=== PATIENT | female | born 1985 | race Caucasian/White ===

== ENCOUNTER → 2017-05-10 | Outpatient (CLI) | payer OTHER ==
--- NOTE | 2017-05-10 08:42 | US ---
EXAMINATION TYPE: US gallbladder DATE OF EXAM: 05/10/2017 COMPARISON: NONE CLINICAL HISTORY: R10.11 Right upper quadrant pain. Digestion issues for 6 months, abd ruq pain EXAM MEASUREMENTS: Liver Length: 13.4 cm Gallbladder Wall: 0.2 cm CBD: 0.4 cm Right Kidney: 11.3 x 4.9 x 3.9 cm Pancreas: wnl Liver: wnl Gallbladder: Singular fold seen at neck, wnl Evidence for sonographic Parekh's sign: no CBD: wnl Right Kidney: wnl IMPRESSION: No sonographic evidence of cholelithiasis or cholecystitis. If there is clinical concern for chronic cholecystitis or biliary dyskinesia HIDA scan with CCK could be performed.
== END | disposition home or self-care (01) ==
LOC: RADUSWWP 08:02
PROVIDERS: ATTEND Surgery
DX: R10.11 Right upper quadrant pain (principal)
CPT/HCPCS: 76705

== ENCOUNTER 2017-05-14 10:26 | Day surgery (SDC) | payer BC, OTHER ==
[2017-05-13 09:26] VITALS: BMI 21.1
[~2017-05-14 10:26] MED LIST: DEXAMETHASONE SOD PHOSPHATE 10 MG/ML 1 ML VIAL IV ONE; LACTATED RINGERS 1,000 ML IV SCH; MIDAZOLAM 2 MG/2 ML VIAL IV PRN; ONDANSETRON 4 MG/2 ML VIAL IVP ONE; Pre Op ABX Message 1 EACH MISC MISCELLANE ONE
[2017-05-14] MEDS ORDERED: SCOPOLAMINE 1.5MG/72HR PATCH TRANSDERM ONE (12:31)
[2017-05-14] MEDS ORDERED: HEPARIN SODIUM,PORCINE 5,000 UNIT/ML 1 ML VIAL SQ ONE (13:43)
[2017-05-14] MEDS ORDERED: BUPIVACAINE-EPI 0.5%-1:200,000 10 ML VIAL SQ ONE (13:57)
[2017-05-14] MEDS ORDERED: GLYCOPYRROLATE 0.2 MG/ML 2 ML VIAL ONE (14:05)
[2017-05-14] MEDS ORDERED: NEOSTIGMINE 1 MG/ML 10 ML VIAL ONE (14:05)
[2017-05-14] MEDS ORDERED: MIDAZOLAM 2 MG/2 ML VIAL ONE (14:05)
[2017-05-14] MEDS ORDERED: fentaNYL (PF) 50 MCG/ML 2 ML AMP ONE (14:05)
[2017-05-14] MEDS ORDERED: ROCURONIUM BROMIDE 10 MG/ML 10 ML VIAL IV ONE (14:05)
[2017-05-14] MEDS ORDERED: SUCCINYLCHOLINE CHLORIDE 100 MG/5 ML SYR IV ONE (14:05)
[2017-05-14] MEDS ORDERED: PROPOFOL 10 MG/ML 20 ML VIAL IV ONE (14:05)
[2017-05-14] MEDS: ceFAZolin 2 GM in SODIUM CHLORIDE 0.9% 100 ML IVPB ONE ×2 (14:15→14:22)
[2017-05-14] MEDS ORDERED: LACTATED RINGERS 1,000 ML IV ONE (15:23)
--- NOTE | 2017-05-14 15:24 | P.OP ---
Date of Procedure: 05/14/17 Preoperative Diagnosis: Biliary dyskinesia Postoperative Diagnosis: Biliary dyskinesia Procedure(s) Performed: Robot assisted laparoscopic cholecystectomy Anesthesia: SHERIN Surgeon: Thuy Jennings Pathology: other Condition: stable Description of Procedure: Patient is a 31-year-old female who presented with right upper quadrant pain and a clinical diagnosis of chronic cholecystitis was made. After appropriate informed consent and answering all the patient's questions patient taken the operating placement position and given general anesthesia with endotracheal intubation. After entry into the badominal cavity in the palmers point with a veress needle, abdomen was insufflated to 15 mm hg. . Three 8 mm ports were then placed for the robot in the left upper quadrant and right upper quadrant. A 12 mm port was placed to the left side of the umbilicus Once ports were then placed the patient was placed in appropriate position of left side down and reverse Trendelenburg. The robot was docked and Prograsp was taken in arm 3, [place] was taken and later replaced with bipolar fenestrated forceps in arm 2. Camera was through the 12 mm umbilical port site. And a hook cautery was taken in the arm 1. Gallbladder was retracted cephalad and superiorly. Inflammatory adhesions were taken down with the help of electrocautery. Appropriate critical view was obtained in cystic duct and artery were isolated. 2 clips proximally and 1 distally were plced in the artery and cystic duct and then and transected sharply with the help of scissors. The gallbladder was then taken off the gallbladder fossa with the help of electrocautery. There was inadvertent hole in the gallbladder which resulted in leakage of bile. All that was sucked dry. The abdomen was thoroughly irrigated and sucked dry. Gallbladder was then placed in Endo Catch bag and removed through 12 port site after undocking the robot. Abdomen was then again visualized and completely irrigated and sucked dry. 12 mm port site was closed with the help of a Vargas Meyers under direct laparoscopic view using 0 Vicryl. At this point the procedure was terminated and all ports were removed. Local anesthesia infiltrated into the incisions skin was closed with 4-0 Monocryl and Dermabond was applied. Patient is tolerated the porcedure well with no complications. She was extubated and taken to recovery room in stable condition.
[2017-05-14] MEDS: HYDROmorphone 0.5 MG/0.5 ML SYRINGE IVP PRN ×3 (15:41→16:20)
[2017-05-14 15:46] VITALS: TEMP 97.8
[2017-05-14] MEDS ORDERED: ONDANSETRON 4 MG/2 ML VIAL IVP ONE (16:02)
[2017-05-14] MEDS ORDERED: KETOROLAC 30 MG/ML 1 ML VIAL IVP ONE (16:37)
[2017-05-14] MEDS ORDERED: PROMETHAZINE INJ 25 MG/ML 1 ML VIAL IVPB ONE (17:19)
[2017-05-14 18:30] VITALS: BP 122/66; PULSE 50; RESP 18
== END 2017-05-14 19:08 | disposition home or self-care (01) ==
LOC: OR 10:26
PROVIDERS: ATTEND Surgery
DX: K80.10 Calculus of gallbladder with chronic cholecystitis without obstruction (principal); K82.8 Other specified diseases of gallbladder; K21.9 Gastro-esophageal reflux disease without esophagitis; F34.1 Dysthymic disorder; G43.009 Migraine without aura, not intractable, without status migrainosus; Z79.899 Other long term (current) drug therapy; F17.200 Nicotine dependence, unspecified, uncomplicated
CPT/HCPCS: 81025; 88304; 47562; J2250; J1644; J1100; J2550; J2710; J0690; J2405; J3010; J1885; J0330; J2704; J1170

== ENCOUNTER → 2017-05-20 | Outpatient (CLI) | payer OTHER ==
[2017-05-20 10:59] LABS: CH 29.6; CHCM 32.8; HCT 39.2 % (34.0-46.0); HDW 2.28; HGB 12.8 gm/dL (11.4-16.0); MCH 29.5 pg (25.0-35.0); MCHC 32.5 g/dL (31.0-37.0); MCV 90.8 fL (80.0-100.0); Mean Platelet Volume 8.1; RBC 4.32 m/uL (3.80-5.40); RDW 12.2 % (11.5-15.5); WBC 7.4 k/uL (3.8-10.6)
[2017-05-20 11:29] LABS: ALT 51 U/L (9-52); AST 27 U/L (14-36); Alkaline Phosphatase 51 U/L (38-126); Anion Gap 8 mmol/L; Blood Urea Nitrogen 11 mg/dL (7-17); Calcium 9.3 mg/dL (8.4-10.2); Carbon Dioxide 25 mmol/L (22-30); Chloride 107 mmol/L (98-107); Glucose 92 mg/dL (74-99); Non-African American GFR(MDRD) >60 (>60 ml/min/1.73 sqM); Potassium 4.4 mmol/L (3.5-5.1); Sodium 140 mmol/L (137-145); Total Bilirubin 0.3 mg/dL (0.2-1.3); Total Protein 6.7 g/dL (6.3-8.2)
== END | disposition home or self-care (01) ==
LOC: LABWHC1 10:30
PROVIDERS: ATTEND Surgery
DX: K82.8 Other specified diseases of gallbladder (principal)
CPT/HCPCS: 36415; 80053; 85027

== ENCOUNTER 2017-05-21 12:54 | Observation (INO) | payer OTHER ==
--- NOTE | 2017-05-21 14:05 | CT ---
EXAMINATION TYPE: CT abdomen w con DATE OF EXAM: 05/21/2017 COMPARISON: NONE HISTORY: Abdominal pain. Status post cholecystectomy approximately one week ago. CT DLP: 271.40 mGycm CONTRAST: CT scan of the abdomen and pelvis is performed without Oral Contrast and with IV Contrast, patient in jected with 100 ml mL of Omnipaque 300. FINDINGS: LUNG BASES-: No visible nodule. No infiltrate. LIVER/GB: There is been a cholecystectomy. Small amount of fluid is seen within the gallbladder fossa which is likely postoperative in nature. A small leak would be difficult to exclude. Correlate clini milli. Fluid collection measures 7 mm in greatest width. There is free air identified throughout the abdomen and subcutaneous tissues which is consistent with recent postoperative state. No space occupy ing hepatic lesion. Biliary tree is of normal caliber. PANCREAS: No inflammation. No distinct mass. SPLEEN: 1.3 cm splenic lesion superior pole of the spleen with mild mural calcification. There is als o adjacent splenic defect which may be related to prior trauma. Lesion could reflect cyst or hemangio ma. ADRENALS: No nodule. No thickening. KIDNEYS/BLADDER: No hydronephrosis. No nephrolithiasis. 1.8 cm left renal cyst. Urinary bladder gr ossly unremarkable. BOWEL: Normal bowel caliber. No inflammation. LYMPH NODES: No greater than 1cm abdominal or pelvic lymph nodes are appreciated. AORTA: No significant abnormality. OSSEOUS STRUCTURES: No significant abnormality is seen. OTHER: No significant additional abnormality is seen. IMPRESSION: 1. Moderate free air considering the patient's surgery was approximately 1 week ago. I do not see ind irect evidence for perforated viscus. Correlate clinically. 2. Small amount of fluid within the gallbladder fossa is likely related to postoperative change. Smal l bile leak would be difficult to exclude. If there is concern for bile leak consider HIDA scan.
[2017-05-21] MEDS ORDERED: LACTATED RINGERS 1,000 ML IV ONE (14:32)
[2017-05-21] MEDS ORDERED: NALOXONE 0.4 MG/ML 1 ML VIAL IV PRN (14:32)
--- NOTE | 2017-05-21 15:45 | P.GSHP ---
History of Present Illness H&P Date: 05/21/17 Chief Complaint: Abdominal pain Patient is a very pleasant 31-year-old lady who underwent a laparoscopic cholecystectomy last week.. The patient followed up with me in clinic on Saturday and was at that time and doing very well with increased appetite decreased nausea and normal bowel movements. However when she woke up this morning she started having severe abdominal pain especially in the left upper quadrant and worsening nausea. His no fever or chills no problems with bowel movements no urinary complaints. No jaundice or icterus no fever chills or shakes. Planing of bilateral shoulder pain as well which has been improving but is still moderately painful - Constitutional Constitutional: Reports anorexia - EENT Ears, nose, mouth and throat: Denies headache, Denies sore throat - Cardiovascular Cardiovascular: Denies chest pain, Denies shortness of breath - Respiratory Respiratory: Denies cough, Denies 7 - Gastrointestinal Gastrointestinal: Reports as per HPI - Genitourinary (Female) Genitourinary: Denies dysuria, Denies hematuria - Integumentary Integumentary: Denies pruritus, Denies rash - Endocrine Endocrine: Denies fatigue, Denies weight change - Hematologic/Lymphatic Hematologic/Lymphatic: Denies as per HPI, Denies easy bleeding, Denies easy bruising, Denies lymphadenopathy, Denies lymphedema, Denies thrombophilia - Allergic/Immunologic Allergic/Immunologic: Denies as per HPI, Denies allergic rhinitis, Denies anaphylaxis, Denies angioedema, Denies gluten intolerance, Denies persistent infections, Denies seasonal allergies, Denies urticaria, Denies wheezing Past Medical History Past Medical History: No Reported History Additional Past Medical History / Comment(s): Obstetric history: HEr first was a vaginal delivery in 2010. This is her second . She has had care since 9 weeks gestation. She is A+, abs neg, Rub Imm, RPR NR, Hep B neg, HIV NR. normal 1hr GTT and GBS neg. History of Any Multi-Drug Resistant Organisms: None Reported Past Surgical History: No Surgical Hx Reported Past Anesthesia/Blood Transfusion Reactions: No Reported Reaction Smoking Status: Former smoker - Past Family History Father Family Medical History: Cancer Medications and Allergies Home Medications Medication Instructions Recorded Confirmed Type HYDROcodone/APAP 5-325MG [[place] 1 tab PO Q4HR PRN #12 tab 05/14/17 05/21/17 Rx 5-325] Ibuprofen [Motrin] 800 mg PO Q8H PRN #20 tab 05/14/17 05/21/17 Rx Ergocalciferol (Vitamin D2) 50,000 unit PO Q7D 05/21/17 05/21/17 History [Vitamin D2] Allergies Allergy/AdvReac Type Severity Reaction Status Date / Time No Known Allergies Allergy Verified 05/21/17 15:19 Surgical - Exam Vital Signs Temp Pulse Resp BP Pulse Ox 98.2 F 66 18 119/71 96 05/21/17 15:00 05/21/17 15:00 05/21/17 15:00 05/21/17 15:00 05/21/17 15:00 - General well nourished, moderate distress - Eyes PERRL, normal ocular movement, no pale - ENT normal pinna, normal nares, normal mucosa, no hearing loss - Neck no masses, no bruits, trachea midline - Respiratory normal expansion, normal respiratory effort - Cardiovascular Rhythm: regular - Abdomen Abdomen is soft with no peritoneal sign left upper quadrant was tender is no guarding or rebound. Abdomen: soft, tender, surgical scars - Integumentary no rash, no growths - Neurologic normal coordination, normal sensation, disoriented - Musculoskeletal normal gait, normal posture - Psychiatric oriented to time, oriented to person, oriented to place, speech is normal, memory intact Results - Imaging Additional studies: Computed tomography scan of the abdomen and pelvis was reviewed there is no overt signs of leak or injury. The patient has normal last Saturday. Assessment and Plan (1) Abdominal pain Current Visit: Yes Status: Acute Code(s): R10.9 - UNSPECIFIED ABDOMINAL PAIN SNOMED Code(s): 92625002 Plan: Patient had left scopic was technique the lower week ago. She had been doing fine until this Saturday when she suddenly started having pain this morning. Labs on Saturday were completely normal computed tomography scan of the abdomen pelvis was seen and reviewed with the radiologist and reveals appropriate amount of postoperative fluid in the gallbladder fossa. There was also bubbles of air throughout the abdomen consistent with his surger comes in complaining of shoulder pain bilaterally. She is having some nausea. I will give her pain medication and antinausea medication. We'll do labs today and repeat them in the morning. I will reevaluate her in the morning. If her pain continues and her labs or something unusual especially in view of peritoneal signs we will explore that and do a diagnostic laparoscopy. After detailed discussion with the patient who understand
[2017-05-21 16:16] LABS: Basophils # (A) 0.1 k/uL (0-0.2); Basophils % (A) 1 %; CH 30.2; CHCM 33.2; Eosinophils # (A) 0.2 k/uL (0-0.7); Eosinophils % (A) 2 %; HCT 40.5 % (34.0-46.0); HDW 2.31; HGB 13.1 gm/dL (11.4-16.0); Luc # (Auto) 0.09; Luc % (Auto) 1; Lymphocytes # (A) 2.3 k/uL (1.0-4.8); Lymphocytes % (A) 29 %; MCH 29.6 pg (25.0-35.0); MCHC 32.4 g/dL (31.0-37.0); MCV 91.4 fL (80.0-100.0); Mean Platelet Volume 7.7; Monocytes # (A) 0.4 k/uL (0-1.0); Monocytes % (A) 5 %; Neutrophils # (A) 4.8 k/uL (1.3-7.7); Neutrophils % (A) 62 %; RBC 4.43 m/uL (3.80-5.40); RDW 12.2 % (11.5-15.5); WBC 7.7 k/uL (3.8-10.6); WBC (Perox) 7.69
[2017-05-21 16:20] LABS: ALT 49 U/L (9-52); AST 26 U/L (14-36); Alkaline Phosphatase 50 U/L (38-126); Amylase 44 U/L (30-110); Anion Gap 8 mmol/L; Blood Urea Nitrogen 9 mg/dL (7-17); Calcium 9.5 mg/dL (8.4-10.2); Carbon Dioxide 26 mmol/L (22-30); Chloride 104 mmol/L (98-107); Glucose 81 mg/dL (74-99); Non-African American GFR(MDRD) >60 (>60 ml/min/1.73 sqM); Potassium 4.1 mmol/L (3.5-5.1); Sodium 138 mmol/L (137-145); Total Bilirubin 0.3 mg/dL (0.2-1.3); Total Protein 6.9 g/dL (6.3-8.2)
[2017-05-21] MEDS: ONDANSETRON 4 MG/2 ML VIAL IVP PRN (17:50)
[2017-05-21] MEDS: HYDROmorphone 0.5 MG/0.5 ML SYRINGE IVP PRN (18:01)
[2017-05-21] MEDS: FAMOTIDINE 20 MG TAB PO SCH (20:12)
[2017-05-21] MEDS ORDERED: ACETAMINOPHEN TAB 325 MG TAB PO PRN (20:24)
[2017-05-22] MEDS: ONDANSETRON 4 MG/2 ML VIAL IVP PRN ×2 (01:41→10:27)
[2017-05-22] MEDS: HYDROmorphone 0.5 MG/0.5 ML SYRINGE IVP PRN ×2 (04:01→10:27)
[2017-05-22 07:00] LABS: Basophils # (A) 0.1 k/uL (0-0.2); Basophils % (A) 1 %; CH 29.2; CHCM 32.7; Eosinophils # (A) 0.3 k/uL (0-0.7); Eosinophils % (A) 5 %; HCT 38.6 % (34.0-46.0); HDW 2.17; HGB 12.6 gm/dL (11.4-16.0); Luc # (Auto) 0.14; Luc % (Auto) 2; Lymphocytes # (A) 2.2 k/uL (1.0-4.8); Lymphocytes % (A) 34 %; MCH 29.2 pg (25.0-35.0); MCHC 32.6 g/dL (31.0-37.0); MCV 89.8 fL (80.0-100.0); Monocytes # (A) 0.4 k/uL (0-1.0); Monocytes % (A) 5 %; Neutrophils # (A) 3.4 k/uL (1.3-7.7); Neutrophils % (A) 53 %; WBC 6.5 k/uL (3.8-10.6); WBC (Perox) 6.63
[2017-05-22 07:23] LABS: ALT 50 U/L (9-52); AST 29 U/L (14-36); Alkaline Phosphatase 48 U/L (38-126); Amylase 37 U/L (30-110); Anion Gap 11 mmol/L; Blood Urea Nitrogen 10 mg/dL (7-17); Calcium 9.4 mg/dL (8.4-10.2); Carbon Dioxide 24 mmol/L (22-30); Chloride 105 mmol/L (98-107); Glucose 83 mg/dL (74-99); Non-African American GFR(MDRD) >60 (>60 ml/min/1.73 sqM); Potassium 4.2 mmol/L (3.5-5.1); Sodium 140 mmol/L (137-145); Total Bilirubin 0.7 mg/dL (0.2-1.3); Total Protein 6.4 g/dL (6.3-8.2)
[2017-05-22] MEDS: FAMOTIDINE 20 MG TAB PO SCH (08:05)
[2017-05-22 08:18] VITALS: PULSE 51; RESP 18; TEMP 98.3
[2017-05-22 10:27] VITALS: BP 120/63
[2017-05-22] MEDS ORDERED: SCOPOLAMINE 1.5MG/72HR PATCH TRANSDERM SCH (10:30)
--- NOTE | 2017-05-22 11:18 | P.CONS ---
History of Present Illness - Reason for Consult Consult date: 05/22/17 Nausea Requesting physician: Thuy Jennings - Chief Complaint nausea - History of Present Illness 31-year-old female status post laparoscopic acalculus cholecystectomy 2016 for persistent midepigastric burning discomfort, nonbloody diarrhea 1 year duration. Presents yesterday with left upper quadrant discomfort generalized achiness and nausea. Denies fever chills hematemesis hematochezia melena. Few episodes of diarrhea over the last few days. CT abdomen small fluid seen within the gallbladder fossa most likely postoperative in nature. Small biliary leak difficult to exclude. Fluid collection 7 mm. Biliary tree of normal caliber. White count 6.5. Hemoglobin 12.6. Platelet 294. LFTs bilirubin within normal limits. Lipase 198. Amylase 37. Review of Systems Constitutional: Denies fever, chills, sweats, weight gain, or loss. HEENT: Negative for migraines, blurred vision or loss, earaches, drainage, tinnitus, oral mucosal lesions, dysphagia, or odynophagia. CARDIAC: Negative for chest pain, arrhythmias, or palpitation. RESPIRATORY: Negative for shortness of breath, hemoptysis, cough, or sputum production. GI: See HPI for pertinent findings. : Negative for hematuria, urgency, frequency, polyuria, or dysuria. GYNc: Denies possibility of . Negative vaginal discharge. MUSCULOSKELETAL: Negative for muscle aches, swelling, arthritis, and arthralgias. NEUROLOGIC: Negative for stroke or TIA. ENDOCRINE: Negative for thyroid problems. SKIN: Negative for rash or itching. PSYCHIATRIC: Negative history for depression and anxiety Past Medical History Past Medical History: No Reported History Additional Past Medical History / Comment(s): Obstetric history: HEr first was a vaginal delivery in 2010. This is her second . She has had care since 9 weeks gestation. She is A+, abs neg, Rub Imm, RPR NR, Hep B neg, HIV NR. normal 1hr GTT and GBS neg. History of Any Multi-Drug Resistant Organisms: None Reported Past Surgical History: No Surgical Hx Reported Past Anesthesia/Blood Transfusion Reactions: No Reported Reaction Additional Past Anesthesia/Blood Transfusion Reaction / Comm: DIFFICULTY WAKING UP AFTER AA. Smoking Status: Current every day smoker - Past Family History Mother Family Medical History: Hypertension Additional Family Medical History / Comment(s): "CURRENTLY BEING TESTED FOR BREAST CANCER" Father Family Medical History: Cancer Additional Family Medical History / Comment(s): THROAT CANCER D/T HPV Medications and Allergies Home Medications Medication Instructions Recorded Confirmed Type HYDROcodone/APAP 5-325MG [[place] 1 tab PO Q4HR PRN #12 tab 05/14/17 05/21/17 Rx 5-325] Ibuprofen [Motrin] 800 mg PO Q8H PRN #20 tab 05/14/17 05/21/17 Rx Ergocalciferol (Vitamin D2) 50,000 unit PO Q7D 05/21/17 05/21/17 History [Vitamin D2] Allergies Allergy/AdvReac Type Severity Reaction Status Date / Time No Known Allergies Allergy Verified 05/21/17 15:19 Physical Exam Vitals: Vital Signs Temp Pulse Resp BP Pulse Ox 05/22/17 10:26 120/63 05/22/17 08:00 98.3 F 51 L 18 91/47 100 05/22/17 04:00 16 05/22/17 00:00 98.1 F 53 L 16 104/61 99 05/21/17 20:00 18 05/21/17 15:00 98.2 F 66 18 119/71 96 Intake and Output 05/21/17 05/22/17 05/22/17 22:59 06:59 14:59 Intake Total 460 Balance 460 Intake: Oral 460 Other: Voiding Method Toilet Toilet Toilet # Voids 1 Weight 55.7 kg General appearance: The patient is alert, oriented, in no acute distress. HET: Head is normocephalic and atraumatic. Pupils are equal and reactive. Oropharynx is clear without lesions. Neck: Supple without lymphadenopathy. Trachea midline. Heart: S1 S2. Regular rate and rhythm. Lungs: No crackles or wheezes are heard. Abdomen: Soft, very mild upper abdominal tenderness bilaterally laparoscopic incisions healing, nondistended with bowel sounds. No peritoneal signs. No palpable organomegaly or masses. Extremities: Normal skin color and turgor. No cyanosis, rash, ulceration, clubbing, or edema. Radial and pedal pulses are 2/4 bilaterally. Neurological: No focal deficits. Strength and sensation are grossly intact. Results CBC & Chem 7: 05/22/17 06:25 05/22/17 06:25 CT scan - abdomen: report reviewed (Dr. Jennings) Assessment and Plan (1) Abdominal pain Narrative/Plan: Etiology unclear Current Visit: Yes Status: Acute Code(s): R10.9 - UNSPECIFIED ABDOMINAL PAIN SNOMED Code(s): 26829091 (2) Nausea Current Visit: Yes Status: Acute Code(s): R11.0 - NAUSEA SNOMED Code(s): 165293098 (3) S/P laparoscopic cholecystectomy Current Visit: Yes Status: Acute Code(s): Z90.49 - ACQUIRED ABSENCE OF OTHER SPECIFIED PARTS OF DIGESTIVE TRACT SNOMED Code(s): 804408090 Plan: 1. Anti-emetics. GI prophylaxis. If there is concern for small biliary leak recommend HIDA scan. We'll defer to general surgery for further evaluation and possible endoscopy. If diarrhea persists recommend stool studies. Thank you for this kind referral and the opportunity to participate in the care of your patient. This consultation was discussed with Dr. Gupta. The impression and plan of care have been directed as dictated.
[2017-05-22 11:37] VITALS: BMI 21.0
[2017-05-22 12:15] LABS: Appearance,Urine Clear (Clear); Bilirubin,Urine Negative (Negative); Glucose,Urine (UA) Negative (Negative); Ketones,Urine 4+ (Negative); Leukocyte Esterase,Urine Negative (Negative); Nitrite,Urine Negative (Negative); Protein,Urine Negative (Negative); Specific Gravity,Urine 1.013 (1.001-1.035); UA Billing (MACRO vs. MICRO) CHEM; Urobilinogen,Urine <2.0 mg/dL (<2.0)
--- NOTE | 2017-05-22 13:13 | P.DS ---
Providers Date of admission: 05/21/17 14:49 Expected date of discharge: 05/22/17 Attending physician: Thuy Cullen Consults: 05/21/17 15:53 Consult Physician Routine Consulting Provider: Bhupinder Mcarthur Consult Reason/Comments: intractable nausea Do you want consulting provider notified?: Yes, Notify in am Primary care physician: Stated None Hospital Course: 31-year-old female who presented to Dr. cullen clinic on Saturday this week at that time patient was doing well had increased her appetite had decreased nausea and vomiting normal bowel movements. Apparently the patient woke up this morning on the was having severe abdominal pain especially in the left upper quadrant with nausea. No fever chills. No difficulty in having a bowel movement. Denied any burning in urination or frequency urgency. Was not jaundiced. Was advised to come into the emergency room to be evaluated for the above-mentioned symptoms Patient recently underwent a laparoscopic cholecystectomy one week prior. Patient had a CAT scan of the abdomen showed a small amount of fluid within the gallbladder fossa most likely postoperative changes. Biliary tree of normal caliber. White count 6.5 hemoglobin 12.6 function studies and the bilirubin were within normal limits. Lipase 198 and amylase 37. Patient was afebrile tolerating a diet urinalysis was negative for evidence of a UTI. Gastroenterology consultation obtained they recommended conservative treatment and patient follow-up surgical service On the day of discharge patient was up ambulating no further episodes of left upper quadrant or lower quadrant pain abdomen soft nontender reports no nausea vomiting was felt to be appropriate to be discharged Impression discharge diagnosis Present on admission left upper quadrant abdominal pain resolved unclear etiology Status post laparoscopic cholecystectomy The above impression and plan of care have been discussed and directed by signing physician. Jaci Underwood nurse practitioner acting as scribe for signing physician. Plan - Discharge Summary Discharge Rx Participant: No New Discharge Prescriptions: Continue HYDROcodone/APAP 5-325MG [[place] 5-325] 1 tab PO Q4HR PRN #12 tab PRN Reason: Pain Ibuprofen [Motrin] 800 mg PO Q8H PRN #20 tab PRN Reason: Pain Ergocalciferol (Vitamin D2) [Vitamin D2] 50,000 unit PO Q7D Discharge Medication List HYDROcodone/APAP 5-325MG [[place] 5-325] 1 tab PO Q4HR PRN #12 tab 05/14/17 [Rx] Ibuprofen [Motrin] 800 mg PO Q8H PRN #20 tab 05/14/17 [Rx] Ergocalciferol (Vitamin D2) [Vitamin D2] 50,000 unit PO Q7D 05/21/17 [History] Follow up Appointment(s)/Referral(s): Thuy Cullen MD [STAFF PHYSICIAN] - 05/27/17 Activity/Diet/Wound Care/Special Instructions: Encourage oral intake increase drinking water Increase activity Discharge Disposition: HOME SELF-CARE
== END 2017-05-22 13:38 | disposition home or self-care (01) ==
LOC: RADCTMAIN 12:54 → 3OBS 14:49
PROVIDERS: ADMIT Surgery; ATTEND Surgery
DX: R10.12 Left upper quadrant pain (principal); R19.7 Diarrhea, unspecified; R11.0 Nausea; M25.511 Pain in right shoulder; M25.512 Pain in left shoulder; Z90.49 Acquired absence of other specified parts of digestive tract; Z87.891 Personal history of nicotine dependence; Z82.49 Family history of ischemic heart disease and other diseases of the circulatory system; Z80.8 Family history of malignant neoplasm of other organs or systems
CPT/HCPCS: 96374; 96375; 96376; 80053 ×2; 82150 ×2; 83690 ×2; 85025 ×2; 81003; 87086; 74160; G0378 ×2; J2405 ×2; Q9967; J1170 ×2

== ENCOUNTER → 2023-10-29 | Outpatient (CLI) | payer OTHER ==
--- NOTE | 2023-10-29 11:47 | CT ---
EXAMINATION TYPE: CT soft tissue neck w con DATE OF EXAM: 10/29/2023 COMPARISON: None HISTORY: rt sided neck cheek swelling x1-[address] DLP: 818.70 mGycm CONTRAST: Patient injected with 100ml mL of Isovue 300. TECHNIQUE: Axial images at 3 mm thick sections. Reconstructed images in the coronal plane and sagitt al plane are reviewed. FINDINGS: Limited CT sections are obtained the lung apices. The lung apices appear clear. CT neck: The torus tubarius and fossa of Rosenmuller are normal. Machining Supervisor spaces are normal. Para nasal sinuses and mastoid air cells are clear. Parotid glands appear normal and symmetrical. Submandibular glands somewhat prominent but symmetrica l. No obvious sialolithiasis lithiasis identified. No dilated ducts evident. Parapharyngeal spaces are normal. No suspicious adenopathy is evident. The hypopharynx appears within normal limits. Vocal cord level appear symmetrical. Thyroid as visualized is normal. Osseous structures are normal. IMPRESSION: 1. No suspicious salivary gland abnormality.
== END | disposition home or self-care (01) ==
LOC: RADCTMAIN 10:31
PROVIDERS: ATTEND Family Medicine
DX: K11.20 Sialoadenitis, unspecified (principal)
CPT/HCPCS: 70491; Q9967

== ENCOUNTER → 2023-10-30 | Outpatient (CLI) | payer OTHER ==
--- NOTE | 2023-10-31 14:12 | MM ---
Reason for Exam: Screening (asymptomatic). Baseline mammogram. Patient History: Menarche at age 11. First Full-Term at age 25. Maternal grandmother had breast cancer under age 50. Last menstrual period: 10/05/2023 Risk Values: Janis 5 year model risk: 0.3%. NCI Lifetime model risk: 10.0%. Prior Study Comparison: Patient's first Mammogram. Tissue Density: The breasts are heterogeneously dense, which may obscure small masses. Findings: Analyzed By CAD. Right breast: Asymmetry best appreciated on MLO view measuring 8 mm and 8.5 cm from the nipple. Not well appreciated on lateral view. Left breast: Focal mass left breast lateral aspect on CC view and posterior nipple line on MLO view approximately 6.5 cm from nipple measuring up to 12 mm. Overall Assessment: Incomplete: need additional imaging evaluation, BI-RAD 0 Management: Diagnostic Mammogram of both breasts. [facility] will attempt to contact patient to return for supplemental views and ultrasound if indicated. Patient should continue monthly self-breast exams. A clinical breast exam by your physician is recommended on an annual basis. This exam should not preclude additional follow-up of suspicious palpable abnormalities. Note on Janis scores and lifetime risk: 1. A Janis score greater than 3% is considered moderate risk. If this is the case, consider specialist referral to assess eligibility for a risk reducing agent. 2. If overall lifetime risk for the development of breast cancer is 20% or higher, the patient may qualify for future screening with alternating mammogram and breast MRI. Electronically signed and approved by: Tereso Yarbrough DO
== END | disposition home or self-care (01) ==
LOC: RADMAMWWP 09:41
PROVIDERS: ATTEND Family Medicine
DX: Z12.31 Encounter for screening mammogram for malignant neoplasm of breast (principal); Z80.3 Family history of malignant neoplasm of breast
CPT/HCPCS: 77067

== ENCOUNTER → 2023-11-05 | Outpatient (CLI) | payer OTHER ==
--- NOTE | 2023-11-05 12:19 | MM ---
Reason for Exam: Additional evaluation requested from abnormal screening. Last screening mammogram was performed less than 1 month ago. Patient History: Menarche at age 11. First Full-Term at age 25. Maternal grandmother had breast cancer under age 50. Risk Values: Janis 5 year model risk: 0.3%. NCI Lifetime model risk: 10.0%. Prior Study Comparison: 10/30/2023 Bilateral MG screening mammo w CAD, [facility]. Tissue Density: There are scattered areas of fibroglandular density. Findings: Analyzed By CAD. Bilateral mass densities noted likely reflective of cysts. Ultrasound is recommended. Overall Assessment: Incomplete: need additional imaging evaluation, BI-RAD 0 Management: Diagnostic Breast Ultrasound of both breasts. . Results were given to the patient verbally at the time of exam. Patient should continue monthly self-breast exams. A clinical breast exam by your physician is recommended on an annual basis. This exam should not preclude additional follow-up of suspicious palpable abnormalities. Note on Janis scores and lifetime risk: 1. A Janis score greater than 3% is considered moderate risk. If this is the case, consider specialist referral to assess eligibility for a risk reducing agent. 2. If overall lifetime risk for the development of breast cancer is 20% or higher, the patient may qualify for future screening with alternating mammogram and breast MRI. Electronically signed and approved by: Mike Hernández M.D. Radiologis
--- NOTE | 2023-11-05 13:49 | USB ---
Reason for Exam: Additional evaluation requested from abnormal screening. Patient History: Menarche at age 11. First Full-Term at age 25. Maternal grandmother had breast cancer under age 50. Risk Values: Janis 5 year model risk: 0.3%. NCI Lifetime model risk: 10.0%. Technique: Method: Targeted. Doppler: Color. Patient Position: Lateral Decubitus. Prior Study Comparison: 10/30/2023 Bilateral MG screening mammo w CAD, [facility]. Findings: The upper outer quadrant of both breasts, the axilla of both breasts and the retroareolar of both breasts were scanned. Multiple simple cysts are seen bilaterally. Largest within the right breast at 10:00 6 cm from the nipple measures 1.8 x 1.9 x 0.9 cm. Largest within the left breast is noted at the left 2:00 position measuring 2.5 x 1.1 cm 3 cm from the nipple. No solid mass is detected.. Overall Assessment: Benign, BI-RAD 2 Management: Screening Mammogram of both breasts at age 42. A clinical breast exam by your physician is recommended on an annual basis and results should be correlated with mammographic findings. This exam should not preclude additional follow-up of suspicious palpable abnormalities. Results were given to the patient verbally at the time of exam. Electronically signed and approved by: Mike Hernández M.D. Radiologis
== END | disposition home or self-care (01) ==
LOC: RADMAMWWP 10:35
PROVIDERS: ATTEND Family Medicine
DX: N60.11 Diffuse cystic mastopathy of right breast (principal); N60.12 Diffuse cystic mastopathy of left breast; R92.323 Mammographic fibroglandular density, bilateral breasts; Z80.3 Family history of malignant neoplasm of breast
CPT/HCPCS: 77066; 76642; G0279; 77062

== ENCOUNTER → 2025-01-04 | Outpatient (CLI) | payer OTHER ==
--- NOTE | 2025-01-04 13:47 | MM ---
Reason for Exam: Screening (asymptomatic). Last mammogram was performed 1 year(s) and 2 month(s) ago. Patient History: Menarche at age 11. First Full-Term at age 25. Premenopausal. Maternal grandmother had breast cancer under age 50. Risk Values: Janis 5 year model risk: 0.4%. NCI Lifetime model risk: 10.0%. Prior Study Comparison: 10/30/2023 Bilateral MG screening mammo w CAD, [facility]. 11/05/2023 Bilateral MG 3D work up w/cad [facility]IN, [facility]. Tissue Density: The breasts are heterogeneously dense, which may obscure small masses. Findings: Analyzed By CAD. There is no suspicious group of microcalcifications or new suspicious mass in either breast. Overall Assessment: Negative, BI-RAD 1 Management: Screening Mammogram of both breasts in 1 year. . Patient should continue monthly self-breast exams. A clinical breast exam by your physician is recommended on an annual basis. This exam should not preclude additional follow-up of suspicious palpable abnormalities. Note on Janis scores and lifetime risk: 1. A Janis score greater than 3% is considered moderate risk. If this is the case, consider specialist referral to assess eligibility for a risk reducing agent. 2. If overall lifetime risk for the development of breast cancer is 20% or higher, the patient may qualify for future screening with alternating mammogram and breast MRI. [facility], , 01/04/2025 1:44 PM. Electronically signed and approved by: Cesar Diamond M.D.
== END | disposition home or self-care (01) ==
LOC: RADMAMWWP 12:43
PROVIDERS: ATTEND Family Medicine
DX: Z12.31 Encounter for screening mammogram for malignant neoplasm of breast (principal); R92.333 Mammographic heterogeneous density, bilateral breasts; Z80.3 Family history of malignant neoplasm of breast
CPT/HCPCS: 77067